=== PATIENT | female | born 1965 | race Caucasian/White ===

== ENCOUNTER → 2017-11-22 | Outpatient (CLI) | payer OTHER ==
[2017-11-22 16:50] LABS: Anisocytosis Slight; Basophils # (A) 0.1 k/uL (0-0.2); Basophils % (A) 1 %; Eosinophils # (A) 0.1 k/uL (0-0.7); Eosinophils % (A) 2 %; HGB 8.1 gm/dL (11.4-16.0); Hypochromasia Marked; Lymphocytes % (A) 33 %; MCHC 27.1 g/dL (31.0-37.0); MCV 66.4 fL (80.0-100.0); Mean Platelet Volume 6.3; Microcytosis Marked; Monocytes # (A) 0.4 k/uL (0-1.0); Monocytes % (A) 7 %; Neutrophils # (A) 3.3 k/uL (1.3-7.7); Neutrophils % (A) 56 %; Platelet Count 484 k/uL (150-450); Poikilocytosis Slight; RBC 4.52 m/uL (3.80-5.40); RDW 18.5 % (11.5-15.5); Reticulocyte % 1.8 % (0.5-2.0)
[2017-11-23 02:01] LABS: Folate, Serum 13.6 ng/mL; Iron Saturation 2.51 (12.00-45.00)
== END | disposition home or self-care (01) ==
LOC: LABWHC1 15:58
PROVIDERS: ATTEND Family Medicine
DX: D64.9 Anemia, unspecified (principal); K92.2 Gastrointestinal hemorrhage, unspecified
CPT/HCPCS: 36415; 82607; 82728; 82746; 83540; 83550; 84466; 85025; 85045

== ENCOUNTER 2019-01-17 06:40 | Day surgery (SDC) | payer OTHER ==
[2019-01-16 08:48] VITALS: BMI 28.3
[~2019-01-17 06:40] MED LIST: LACTATED RINGERS 1,000 ML IV SCH; ONDANSETRON 4 MG/2 ML VIAL IVP PRN
[2019-01-17 06:57] VITALS: TEMP 97.3
[2019-01-17] MEDS ORDERED: LIDOCAINE 1% 20 ML VIAL (10MG/ML) FOR IV START INTRADERMA ONE (07:01)
[2019-01-17] MEDS ORDERED: MIDAZOLAM 2 MG/2 ML VIAL IV ONE (07:33)
[2019-01-17] MEDS ORDERED: fentaNYL (PF) 50 MCG/ML 2 ML AMP ONE (07:52)
[2019-01-17] MEDS ORDERED: ROCURONIUM BROMIDE 10 MG/ML 10 ML VIAL IV ONE (07:52)
[2019-01-17] MEDS ORDERED: LIDOCAINE 1% INJ 10MG/ML (20 ML MDV) ONE (07:52)
[2019-01-17] MEDS ORDERED: GLYCOPYRROLATE 0.2 MG/ML 2 ML VIAL ONE (07:52)
[2019-01-17] MEDS ORDERED: ePHEDrine SULFATE/0.9% NACL/PF 50 MG/5 ML SYRINGE IV ONE (07:52)
[2019-01-17] MEDS ORDERED: PROPOFOL 10 MG/ML 20 ML VIAL IV ONE (07:52)
[2019-01-17] MEDS ORDERED: MIDAZOLAM 2 MG/2 ML VIAL ONE (07:52)
[2019-01-17] MEDS ORDERED: ROPIVACAINE 5 MG/ML 30 ML VIAL ONE (07:52)
[2019-01-17] MEDS ORDERED: NEOSTIGMINE 1 MG/ML 10 ML VIAL ONE (07:52)
[2019-01-17] MEDS ORDERED: SUCCINYLCHOLINE CHLORIDE 100 MG/5 ML SYR IV ONE (07:52)
[2019-01-17] MEDS ORDERED: DEXAMETHASONE SOD PHOSPHATE 4 MG/ML 1 ML VIAL ONE (07:52)
[2019-01-17] MEDS ORDERED: LACTATED RINGERS 1,000 ML IV ONE (08:57)
--- NOTE | 2019-01-17 10:11 | FL ---
EXAMINATION TYPE: FL guidance operating room, XR foot limited RT DATE OF EXAM: 01/17/2019 CLINICAL HISTORY: Bunion deformity and pain. TECHNIQUE: Fluoroscopy. Limited right foot. COMPARISON: None. FINDINGS: Fluoroscopic guidance was provided during first metatarsal fusion procedure performed by Aarti Tsai. A total of 39 seconds of fluoroscopic time was utilized during the procedure and 3 spot fluoroscopic intraoperative images are acquired. Intraoperative images acquired show placement of dorsal fixating plate over the first metatarsal phal angeal joint with satisfactory alignment on intraoperative images obtained. IMPRESSION: As Above.
[2019-01-17] MEDS: HYDROmorphone 0.5 MG/0.5 ML SYRINGE IVP PRN ×3 (10:22→10:34)
--- NOTE | 2019-01-17 10:25 | P.OP ---
Date of Procedure: 01/17/19 Preoperative Diagnosis: 1. Right hypermobile hallux valgus 2. Right mid foot arthritis 3. Right gastroc equinus contracture Postoperative Diagnosis: Same Procedure(s) Performed: 1. Correction of right hallux valgus with triplanar correction and first t arsometatarsal joint arthrodesis 2. Correction of hallux valgus with right modified Finn procedure 3. Use of fluoroscopy by physician, right foot 4. Application of short leg splint by physician, right leg Anesthesia: PEDRO LUIS, regional Surgeon: Mane Tsai New Accounts Representative #1: Osito Conroy Estimated Blood Loss (ml): 10 IV fluids (ml): 1,200 Pathology: none sent Condition: stable Disposition: PACU Indications for Procedure: The patient is very possibly was healthy 53-year-old female with long-standing history of problems both of her feet. She initially has been managed by an outside physician. She came to see me in the office this past summer and was diagnosed with bilateral hallux valgus deformities. She is also found to have midfoot arthritis but this was minimally symptomatic for her. We discussed both nonsurgical and surgical treatment. After failing a long course of nonsurgical treatment the patient requested surgery. My recommendation was to correct her deformity with a modified Lapidus type procedure. We discussed potential risks and complications of surgery including but not limited to risk of anesthesia, superficial infection, deep infection, delayed wound healing, nonunion of the fusion site, malunion of the fusion site, over correction of the deformity, under correction of the deformity, symptomatically hardware, DVT, PE, other me dical complications, generalized to satisfaction with surgery, need for further surgery, possible loss of life or limb. The patient voiced understanding of these potential complications and also analogies that other less common complications are possible. She provided her verbal and written consent to go forward with surgery. Description of Procedure: The patient was identified in preoperative holding and the correct right leg was marked my initials. I reviewed the consent form with the patient and her . All questions were answered. The patient was then brought back to the operating room by anesthesia. She was positioned on the OR table where a general anesthetic and preoperative antibiotics were given. Prior to coming to the operating room a block was given by anesthesia. After she was under anesthetic she was positioned for surgery. A tourniquet was applied to the proximal aspect of her right leg. All bony prominences were well-padded. The right leg was then prepped and draped in standard sterile fashion. Prior to starting surgery timeout was performed identifying the correct patient, operative extremity, and procedure. The patient's leg was then elevated, exsanguinated with an Esmarch bandage, the tourniquet was inflated to 250 mmHg. I began by outlining a longitudinal incision starting at the proximal pole of the medial cuneiform and extending distally to the midshaft of the first metatarsal. Skin incision was made with a scalpel. Dissection was carried down carefully through the subcu tissue with tenotomy scissors. The EHL tendon sheath was incised and the tendon was retracted laterally. The first tarsometatarsal joint was exposed. A saw was used to plane the first metatarsal base for rotation. A quarter inch osteotome was used to pie crust the plantar capsule of the joint to free the metatarsal base up for rotation. Attention was then turned to the first webspace. A 1 cm incision was made to the skin and d issection was carried down carefully through subcu changes tissue. The lateral capsule was identified and the capsule was sharply released followed by the patellar suspensory ligament. Attention was then turned back to the proximal base first metatarsal. A K wire was placed 1 cm distal to the joint uses a joystick and the 2 o'clock position. A manual reduction was then performed nicely closing down the intermetatarsal angle and covering the sesamoids. A stab incision was made at the lateral base the first metatarsal and a 2.5 mm fulcrum was placed. A stab incision was made over the midshaft of the second metatarsal. The position was then placed with 1 sally over the lateral shaft of the second metatarsal and the other sally over the medial shaft of the first metatarsal. The first metatarsal was gently rotated and the position was then tightened to 2 finger breaths tightness. Clinically the deformity appeared corrected. Fluoroscopy was used to verify correction of the intermetatarsal angle and coverage of the lateral sesamoid. A lateral x-ray was taken to verify that there is no elevation of the first ray. A K wire was placed through the positioner holding the reduction. A joint seeker was then placed in the first metatarsal joint taking care to place the positioner as far lateral as possible to "make a corner" with the fulcrum. A little angle cut guide was then placed over the joint seeker and pinned into place. A microsagittal saw was used to make cuts off the medial cuneiform and metatarsal base. The fulcrum and cut guide were removed. The K wire through the positioner was also removed. A distractor was placed medially and the joint was gently distracted. On inspection there were symmetric and flat cuts off both the metatarsal base and medial cuneiform. The cut bone was removed and the joint was thoroughly irrigated. Fluoroscopy was used to verify that they were flat cuts and there was no impediment to reduction. A 2.0 mm drill bit was used to thoroughly fenestrate the joint to facilitate fusion. An olive tipped K wire was placed laterally across the joint and a 0.0625 K wire was placed medially nicely compressing the joint. Fluoroscopy was used to verify symmetric compression of the joint and maintenance of correction. Biplanar plates were then placed dorsal laterally and medially. Fluoroscopy was used to verify correction of the deformity, compression of the joint, and adequate placement of hardware. A small incision was made over the medial and is the first MTP joint. Dissection was carried down carefully through subcu tissue. The capsule was incised longitudinally in line with the skin incision. An enlarged medial eminence was seen. Using a small microsagittal saw and medial eminence resection was performed taking care to stay medial to the sulcus. A Francisco was used to contour the cut bone. A small amount of the capsule was excised and then was imbricated to further correct the deformity using 0 Vicryl. Final fluoroscopic images were taken. All wounds were thoroughly irrigated and closed in layers. The tourniquet was let down. A sterile dressing consisting of brown quarter stretchy Steri-Strips, Betadine soaked Adaptic, 4 x 4's were applied followed by a well-padded bulky Dominguez splint with ankle in neutral. The patient was then awoken from her anesthetic, transferred to a gurney, and brought to recovery having tolerated the procedure well. Osito Conroy PA-C was required as a skilled physical laboratory assistant for patient positioning, surgical exposure, retraction, placement of hardware, closure of wound, and application of dressing. Plan: The patient is going to discharge home as an outpatient. She is remain strictly nonweightbearing on her right leg. She was given a prescription for all narcotic pain medication and aspirin for DVT prophylaxis. She was also given a prescription for crutches and a knee scooter. She'll follow-up in the office in 2 weeks for splint removal, nonweightbearing x-rays out of the splint, and wound evaluation and likely suture removal.
[2019-01-17] MEDS ORDERED: fentaNYL (PF) 50 MCG/ML 2 ML AMP IVP ONE (10:41)
--- NOTE | 2019-01-17 11:19 | P.ANPRN ---
Procedure Note - Anesthesia - Nerve Block Performed Right Adductor Canal Single Time Out Performed: Yes Date of Procedure: 01/17/19 Procedure Start Time: : Procedure Stop Time: : Location of Patient Procedure: PACU Indication: Acute Post-Operative Pain, Requested by Surgeon Specifically requested for management of pain by DrJorge: Mane Tsai Preparation: Sterile Prep Position: Supine Catheter: None Needle Types: Pajunk Needle Gauge: 20 Ultrasound used to visualize needle placement: Yes Ultrasound used to observe medication spread: Yes Injectate: 0.5% Ropivacaine (see comment for volume) (20cc) Blood Aspirated: No Pain Paresthesia on Injection Noted: No Resistance on Injection: Normal Image Stored and Saved: Yes Events: Uneventful and Well Tolerated
[2019-01-17 12:22] VITALS: BP 111/68; PULSE 78; RESP 16
--- NOTE | 2019-01-17 19:39 | P.ANPRN ---
Procedure Note - Anesthesia - Nerve Block Performed Right Popliteal Single Time Out Performed: Yes Date of Procedure: 01/17/19 Procedure Start Time: 07:34 Procedure Stop Time: 07:37 Location of Patient Procedure: PreOp Indication: Acute Post-Operative Pain, Requested by Surgeon Sedation Type: Sedate with meaningful contact maintained Preparation: Sterile Prep Position: Left Lateral Needle Types: Pajunk Needle Gauge: 21 Ultrasound used to visualize needle placement: Yes Ultrasound used to observe medication spread: Yes Blood Aspirated: No Pain Paresthesia on Injection Noted: No Resistance on Injection: Normal Image Stored and Saved: Yes Events: Uneventful and Well Tolerated (ropi .5% 20cc plus dexamethasone 4mg)
== END 2019-01-17 13:51 | disposition home or self-care (01) ==
LOC: OR 06:40
PROVIDERS: ATTEND Orthopaedic Surgery
DX: M20.11 Hallux valgus (acquired), right foot (principal); M19.071 Primary osteoarthritis, right ankle and foot; M62.461 Contracture of muscle, right lower leg; Z87.891 Personal history of nicotine dependence; Z79.891 Long term (current) use of opiate analgesic; Z79.899 Other long term (current) drug therapy
CPT/HCPCS: 28750; 64447; 81025; 64445; 73620; C1713; J2250; J1100; J2710; J0690; J2405; J2001; J3010; J2795; J0330; J2704; J1170